=== PATIENT | male | born 1950 | race Caucasian/White ===

== ENCOUNTER → 2017-05-18 | Outpatient (CLI) | payer MEDICARE ==
--- NOTE | 2017-05-18 14:52 | US ---
EXAMINATION TYPE: US mass soft tissue chest/back DATE OF EXAM: 05/18/2017 COMPARISON: NONE CLINICAL HISTORY: D17.21 Benign lipomatous neoplasm of skin. Palpable/painful area right mid back x c ouple months Scanned at area of concern: no mass, fluid collection or other abnormality seen by ultrasound at this time IMPRESSION: No distinct abnormality at the site of clinical concern. Correlate clinically.
== END | disposition home or self-care (01) ==
LOC: RADUSWWP 14:10
PROVIDERS: ATTEND Family Medicine
DX: D17.21 Benign lipomatous neoplasm of skin and subcutaneous tissue of right arm (principal)

== ENCOUNTER → 2018-03-25 | Outpatient (CLI) | payer OTHER ==
--- NOTE | 2018-03-27 09:47 | MR ---
EXAMINATION TYPE: MR brain wo/w con DATE OF EXAM: 03/25/2018 COMPARISON: NONE HISTORY: Dizziness per order. Additional symptoms of bilateral extremity numbness per patient. TECHNIQUE: Multiplanar, multisequence images of the brain and brainstem is performed without and with IV contras t, utilizing 11.5 mL intravenous Gadavist . FINDINGS: Diffusion weighted images demonstrate no evidence of a recent infarct or other diffusion ab normality. There is no worrisome extra-axial fluid collection. The ventricular system and cisternal spaces are normal in size and appearance. The brain volume is age appropriate. There are focal and confluent areas of T2 hyperintensity seen throughout the superficial, deep, and the periventricular w cyn matter. Lesions are nonspecific in appearance and distribution but most likely on basis of produ ct of chronic small vessel ischemic change in patient of this age. Midline structures demonstrate normal morphology. The craniocervical junction appears within normal limits. Post contrast images demonstrate no abnormal enhancement. The dural venous sinuses appear pa tent. There is 9 mm mucous retention cyst or polyp in the left maxillary sinus axial image 2. Remaind er paranasal sinuses are clear. The globes are intact bilaterally. Patchy increased fluid signal bila teral mastoid air cells is present. IMPRESSION: 1. Moderate to severe nonspecific white matter changes most likely on basis of product of chronic sma ll vessel ischemic change in patient this age. No suspicious enhancement noted. 2. Possible bilateral mild mastoiditis, correlate clinically with point tenderness.
== END | disposition home or self-care (01) ==
LOC: RADMRIMAIN 18:20
DX: R90.82 White matter disease, unspecified (principal); I67.82 Cerebral ischemia
CPT/HCPCS: 70553; A9585

== ENCOUNTER → 2018-06-22 | Outpatient (CLI) | payer MEDICARE ==
[2018-06-22 10:25] LABS: Blood Urea Nitrogen 10 mg/dL (9-20)
--- NOTE | 2018-06-22 11:13 | CT ---
EXAMINATION TYPE: CT lumbar spine w con DATE OF EXAM: 06/22/2018 COMPARISON: None HISTORY: 15-year-old male Low back pain, Radiculopathy TECHNIQUE: Contiguous axial scanning of the lumbar spine performed with IV Contrast, patient injected with 100 ml mL of Isovue 300. Coronal/sagittal reconstructions performed. CT DLP: 1001 mGycm Automated exposure control for dose reduction was used. FINDINGS: Subcentimeter hypodensity posterior right liver lobe too small for accurate CT characterization, like ly cyst. Hypodense lesions in the kidneys measuring up to 2.0 cm, likely cysts retroaortic left renal vein and fusiform ectasia infrarenal abdominal aorta 2.9 cm. 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 Bridging syndesmophytes. Partial bridging along the sup raspinous ligament and some fusion across the T12-L2 vertebral posterior elements. There is been prior surgical fusion from L3 through S1 levels with lateral osseous fusion, prior lami nectomies, and a retained transpedicular screw on the right and L3. The other orthopedic hardware has been removed. Vertebral body heights are preserved. On the left, there is moderate bony spondylotic neural foraminal narrowing at L4-L5 and mild at L5-S1 . On the right, there is mild bony neuroforaminal narrowing at L4-L5 and severe at L5-S1. IMPRESSION: 1. PRIOR L3-S1 POSTERIOR FUSION WITH REMOVAL OF ORTHOPEDIC HARDWARE. THERE IS A RETAINED RIGHT-SIDED L3 TRANSPEDICULAR SCREW. THERE IS SATISFACTORY LATERAL OSSEOUS FUSION. WIDE LAMINECTOMY ALONG THESE L EVELS. 2. BRIDGING ENDPLATE SYNDESMOPHYTES AND ADDITIONAL ANKYLOSIS ALONG THE POSTERIOR ELEMENTS FROM T12 TH ROUGH L2. CORRELATE FOR AN INFLAMMATORY SPONDYLOARTHROPATHY SUCH IN THE SETTING OF ANKYLOSING SPON DYLITIS OR IBD. THERE IS BONY FUSION ACROSS THE ANTERIOR SI JOINTS WELL. 3. NO VERTEBRAL COMPRESSION COLLAPSE. 4. HYPEROSTOTIC CHANGES RESULT IN VARIABLE NEUROFORAMINAL NARROWING AT L4-L5 AND L5-S1 OUTLINED AB OVE, SEVERE ON THE RIGHT AT L5-S1. 5. 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 POSSIBLE CHRONIC SHORT SEGMENT DISSECTION HERE ( AXIAL IMAGE 72) SUCH IN THE SETTING OF PRIOR CATHETERIZATION. CLINICALLY CORRELATE.
== END | disposition home or self-care (01) ==
LOC: RADCTMAIN 09:43
PROVIDERS: ATTEND Family Medicine
DX: M48.061 Spinal stenosis, lumbar region without neurogenic claudication (principal); M54.16 Radiculopathy, lumbar region; I72.3 Aneurysm of iliac artery; M54.5 Low back pain; Z98.890 Other specified postprocedural states
CPT/HCPCS: 82565; 84520; 72132; 36415; Q9967

== ENCOUNTER → 2018-07-07 | Outpatient (CLI) | payer OTHER ==
--- NOTE | 2018-07-12 14:09 | ENG ---
ELECTRONYSTAGMOGRAM REPORT DATE OF SERVICE: 07/07/2018 VNG INDICATIONS: A 67-year-old male with dizziness, onset in December 2017, gradual in staying the same. Dizziness comes and goes in spells 2-3 times a week lasting 30-60 minutes at a time. The only position that can trigger the dizziness is going from a lying to a seated position. The patient reports bilateral hearing loss and no tinnitus, pressure, pain, or fullness in the ears. VNG FINDINGS: Saccades shows impaired peak velocities, accuracies, and latencies. Gaze with fixation shows no nystagmus in any of the directions of gaze including centrally with vision denied. Tracking shows severe break-ups. Optokinetic nystagmus shows no significant asymmetries. Static position testing shows no nystagmus in the standing, head right or head left positions with eyes open or vision denied. Gas Technician note that patient could not lay flat and could not perform [place]-Hall[place] maneuvers due to severe back pain. Caloric testing not completed as the patient did not tolerate the air flow. IMPRESSION: This is a limited VNG and the patient had difficulty tolerating parts of the test including calorics. However, in sections that were completed, the abnormalities of impaired saccades and tracking suggests central nervous system dysfunction. No nystagmus was encountered during the testing. Clinical correlation necessary. MMODL / IJN: [id number] /
== END | disposition home or self-care (01) ==
LOC: NEUROMAIN 06:27
PROVIDERS: ATTEND Otolaryngology
DX: R42 Dizziness and giddiness (principal)
CPT/HCPCS: 92540

== ENCOUNTER → 2019-08-11 | Outpatient (CLI) | payer MEDICARE ==
[2019-08-11 06:52] LABS: African American GFR (CKD) >90 (>60 ml/min/1.73 sqM); Blood Urea Nitrogen 15 mg/dL (9-20); Non-African American GFR(CKD) 89 (>60 ml/min/1.73 sqM)
--- NOTE | 2019-08-11 09:27 | CT ---
Lasix spine CT HISTORY: Pain Helical acquisition obtained through the thoracic spine following 100 cc Isovue-300 IV. Automated exposure control for dose reduction, DLP 1603.1 mGycm No comparisons Thoracic vertebral bodies show preserved height and alignment. There are anterior flowing osteophytes present with relative preservation of the disc spaces. No significant spinal stenosis or foraminal e ncroachment. Thoracic vertebral bodies show preserved height, alignment, and bone mineralization. The re is a mild spinal curvature. No evident disc herniation. Low-attenuation of the liver could be due to underlying hepatic steatosis. Coronary artery calcificat ions noted incidentally. Old right clavicular fracture is suspected, there is cortical thickening par tially visualized. No abnormal enhancement. IMPRESSION: Findings suggest diffuse idiopathic skeletal hyperostosis.2 coronary artery disease, find ings in the liver as described
== END | disposition home or self-care (01) ==
LOC: RADCTMAIN 06:11
PROVIDERS: ATTEND Family Medicine
DX: M54.16 Radiculopathy, lumbar region (principal)
CPT/HCPCS: 82565; 84520; 72129; 36415; Q9967

== ENCOUNTER → 2019-09-01 | Outpatient (CLI) | payer MEDICARE ==
--- NOTE | 2019-09-01 12:23 | NM ---
EXAMINATION TYPE: NM bone 3 phase DATE OF EXAM: 09/01/2019 COMPARISON: NONE HISTORY: Low back and mid back pain. Prior back surgeries. Possible bone infection Triple phase bone scintigraphy was performed following the injection of 23.6 mCi Tc 99m MDP. Immedia te images and 3.5 hours post injection images acquired. FINDINGS: No abnormal radiotracer is seen on flow imaging nor blood pool imaging. Delayed imaging dem onstrates minimal asymmetric uptake on the right at L3 and T9. Findings are not definitive for osteom yelitis. IMPRESSION: Mild focal uptake at L3 and T9 on delayed images only. This is not specific as it is not seen on all 3 phases. MRI with contrast could evaluate for bone marrow replacing process and osteomye litis/discitis.
== END | disposition home or self-care (01) ==
LOC: RADNMMAIN 07:13
PROVIDERS: ATTEND Family Medicine
DX: M54.6 Pain in thoracic spine (principal); M53.2X6 Spinal instabilities, lumbar region; M54.16 Radiculopathy, lumbar region
CPT/HCPCS: 78315; A9503

== ENCOUNTER → 2020-01-04 | Outpatient (CLI) | payer MEDICARE ==
[2020-01-04 13:34] VITALS: BP 197/99; PULSE 73; RESP 18; TEMP 98
--- NOTE | 2020-01-04 14:11 | P.PAINCN ---
History of Present Illness - Reason for Consult Consult date: 01/04/20 - History of Present Illness This is a 69-year-old patient referred by Dr. Lundberg with a chief complaint of chronic pain in the thoracic spine worse on the right side. The patient has been having this pain since July after he had a significant episode of pneumonia which involves a lot of coughing. The pain is generally midline but worse on the right side radiating out to the chest area described as sharp and stabbing and aching currently an 8 out of 10. He is currently taking morphine 15 mg a few times a day which she says only really takes the edge off and doesn't help very much. He does not take any other medications. Nothing really makes the pain better and any type of activity and bending forward makes the pain worse. Patient denies adverse drug effects from medications. Patient also denies new-onset weakness, bowel/bladder incontinence, or any other signs or symptoms of cauda equina syndrome. There are no signs of acute intoxication, and no indications of medication diversion or overuse. He also has a significant history of low back pain with fusion from L3 to S1 but today he does not feel that it encompasses much of his pain complaints In addition to above, 13-point review of systems is also negative for chest pain, shortness of breath, changes in vision, changes in hearing, new onset weakness, abdominal pain, diarrhea, extreme fatigue, malaise, fever, skin changes, homicidal or suicidal ideation, or bowel or bladder incontinence. Physical exam: Vital Signs: Reviewed in EMR GENERAL: Well appearing, in no acute distress PSYCH: Mood and affect is appropriate. Awake, alert, and oriented SKIN: Skin color, texture, turgor normal, no rashes or lesions HEENT: Normocephalic, atraumatic. EOM intact CV: No pedal edema RESP: Respirations are unlabored, no audible wheezing GI: Abdomen non-distended MUSCULOSKELETAL: Bilateral upper and lower extremity strength is normal and symmetric. No atrophy or tone abnormalities are noted. Lumbar spine: Straight leg raising in the sitting position is negative for radicular pain. Mild to palpation over thoracic paraspinal muscles. Negative for pain with facet loading and back extension/rotation. Decreased ROM due to habitus Buttocks: No pain to palpation over the PSIS, Yesenia test isnegative Extremities: Peripheral joint ROM is full and pain free without obvious instability or laxity in all four extremities. No edema or skin discolorations noted. Gait: Gait is normal NEUR: Bilateral upper and lower extremity coordination and muscle stretch reflexes are physiologic and symmetric. Negative clonus. No loss of sensation is noted. Cranial nerves are grossly intact. Imaging: Thoracic spine CT 07/2019 - Thoracic vertebral bodies show preserved height and alignment. No significant spinal stenosis or foraminal encroachment. Thoracic vertebral bodies show preserved height alignment and bone mineralization.. No evidence of disc herniation. - Findings suggest diffuse idiopathic skeletal hyperostosis Lumbar MRI 05/2018 - Prior surgical fusion from L3 to S1 levels with lateral osseous fusion prior laminectomies and retained transpedicular screw on the right L3. - On the left there is moderate bony spondylolytic neural foraminal narrowing at L4-L5 and mild at L5-S1 - The right there is mild bony from neuroforaminal narrowing at L4-L5 and severe L5-S1 Assessment: 1. Thoracic back pain in the setting of diffuse idiopathic skeletal hyperostosis 2. Chronic low back pain in the setting of prior fusion from L3 to S1 Plan: 1. Explanation: Diagnoses, prognoses, and multiple treatment options including but not limited to physical therapy, interventional therapies, medication management and surgery were discussed with the patient and all questions were answered to the patient's satisfaction. 2. Investigations: None 3. Counseling: The patient was counseled for 3 minutes on EXERCISE. Specifically, the patient was instructed regarding the importance of weight control, and exercise in the context of both chronic pain and overall health. 4. Procedures: At this time given the fact the patient has no findings of arthritis or nerve impingement due to disc herniation in the CT of his thoracic spine done in July of this year I doubt any form of facet intervention or epidurals would be helpful. His imaging did show diffuse idiopathic skeletal hyperostosis which is generally managed with physical therapy and anti- inflammatory medications 5. Consultations: I will give her prescription for physical therapy to primarily focus on the thoracic spine with stretching strengthening and mobiliz ation exercises 6. Medications: I will also prescribe meloxicam 50 mg once a day and recommended Tylenol 9626-5814 mg a day 7. Disposition: I will have him follow-up in 8 weeks after this conservative therapy. If conservative therapy does not work as a possibility of considering thoracic facet joint injections however I explained to the patient given that he is no findings on the imaging I doubt that he would be helpful. Diffuse idiopathic skeletal hyperostosis is a noninflammatory process of steroid injections of any kind likely be unhelpful. Past Medical History Past Medical History: Hypertension, Pneumonia Additional Past Medical History / Comment(s): migraines, History of Any Multi-Drug Resistant Organisms: None Reported Past Surgical History: Back Surgery, Orthopedic Surgery Additional Past Surgical History / Comment(s): rt knee arthroscopy, rt knee open surgery on kneecap, mult back surgeries, spinal cord stimulator/later removed. rt shoulder surgery, jose rafael cataracts Past Anesthesia/Blood Transfusion Reactions: No Reported Reaction Smoking Status: Former smoker - Past Family History Mother Family Medical History: No Reported History Medications and Allergies Home Medications Medication Instructions Recorded Confirmed Type Latanoprost/Pf [Latanoprost 0.005% 1 drop LEFT EYE BID 01/02/20 01/04/20 History Eye Drop] Lidocaine 5% Patch [Lidoderm] 1 patch TOPICAL DAILY PRN 01/02/20 01/04/20 History Morphine Sulfate 15 mg PO QID 01/02/20 01/04/20 History Meloxicam 15 mg PO DAILY #30 tablet 01/04/20 Rx Allergies Allergy/AdvReac Type Severity Reaction Status Date / Time No Known Allergies Allergy Verified 01/02/20 14:06 PQRS Measure Charge Sheet Measure #226: Tobacco Use: Screen & Cessation Intervention: Pt not a tobacco user Measure #111: Pneumonia Vaccination: Pneumococcal vaccine administered or previously received Measure #47: Advance Care Plan: Advance care planning discussed & documented, pt chose/unable to give Measure #412: Opioid Treatment Agreement: No documentation of signed opioid treatment agreement Measure #408: Opioid Therapy Follow-up Evaluation: Patient had NO f/u eval minimum every 3 months during opioid therapy Measure #317: Preventitive Care & Scrn High Bld Press & F/U: Normal blood pressure, f/u not required Measure #128: Body Mass Index (BMI) Screening & Follow-up: BMI documented ABOVE normal parameters - f/u documented Measure #131: Pain Assessment & Follow-up: Pain positive & plan documented, Follow-up scheduled Measure #431: Unhealthy Alcohol Use Preventative Care & Scrn: Patient not identified as an unhealthy alcohol user PQRS Narrative: Pain Intensity [Back] 9 Hx Alcohol Use (MH) No Home Medications: Ambulatory Orders Latanoprost/Pf [Latanoprost 0.005% Eye Drop] 1 drop LEFT EYE BID 01/02/20 Lidocaine 5% Patch [Lidoderm] 1 patch TOPICAL DAILY PRN 01/02/20 Morphine Sulfate 15 mg PO QID 01/02/20 Meloxicam 15 mg PO DAILY #30 tablet 01/04/20
== END | disposition home or self-care (01) ==
LOC: PNWHC3 13:23
PROVIDERS: ATTEND Anesthesiology
DX: M48.14 Ankylosing hyperostosis [Forestier], thoracic region (principal); G89.29 Other chronic pain; M54.5 Low back pain; Z98.1 Arthrodesis status; Z79.899 Other long term (current) drug therapy; Z79.891 Long term (current) use of opiate analgesic
CPT/HCPCS: 99201

== ENCOUNTER → 2020-03-25 | Outpatient (CLI) | payer MEDICARE ==
[2020-03-25 12:38] VITALS: BP 161/91; PULSE 73; RESP 14; TEMP 98
--- NOTE | 2020-03-25 13:08 | P.PAINPG ---
Subjective Progress Note Date: 03/25/20 Matt presents today for follow-up. He was recently seen in our clinic and was prescribed Mobic 15 mg daily and physical therapy. He continues to have pain across the thoracic spine mostly on the right side. He describes a sharp shooting pain across his back without any numbness tingling or burning. He reports that the Mobic subsequently is able to do more around the house and continue working on things he lost a during the hospital. He ran out of medication and noticed a significant difference. He has not been in physical therapy really does not want to. He does not use any opioid pain medications. He is interested refills of the medications. Objective - Vital Signs Vital signs: Vital Signs Temp 98.0 F 03/25/20 12:29 Pulse 73 03/25/20 12:29 Resp 14 03/25/20 12:29 BP 161/91 03/25/20 12:29 Pulse Ox 97 03/25/20 12:29 - Exam General: Awake and alert oriented 3 no distress Respiratory exam: No audible wheezing no accessory muscle usage Cardiovascular exam: regular rate, palpable bilateral pulses, no lower extremity edema Abdominal exam: No distention nontender to palpation Cervical spine: Normal alignment, Spurling's negative, facet loading negative, Production Machine Shop Supervisor strength is 5/5, monroy negative Thoracic spine reveals tenderness palpation of the right side of the thoracic spine. There is erythema or fluctuance or no masses palpated. There are no step-offs noted. Patient is pain with rotation of the thoracic spine. Neuro exam: Normal sensation in bilateral upper extremities, deep tendon reflexes are 2+ bilateral upper extremities. Normal sensation in bilateral lower extremities. Deep tendon reflexes are 2+ in lower extremities Psych exam: Cooperative, appropriate mood Assessment and Plan Assessment: Thoracic spondylosis without myelopathy Thoracic radiculopathy Plan: At this point we'll continue with the Mobic 50 mg daily. I discussed with him and his daughter he should stay hydrated when using his medication. Should monitor his kidney function with the primary care physician and give me a call if he has any questions or concerns believe forward. We'll give him 5 refills in the medications PQRS Measure Charge Sheet Measure #130: Documentation of Current Meds in Medical Chart: Patient's medica tions documented in chart Measure #226: Tobacco Use: Screen & Cessation Intervention: Pt not a tobacco user Measure #111: Pneumonia Vaccination: Pneumococcal vaccine administered or previously received Measure #47: Advance Care Plan: Advance care planning discussed & documented, plan or surrogate given Measure #412: Opioid Treatment Agreement: No documentation of signed opioid treatment agreement Measure #408: Opioid Therapy Follow-up Evaluation: Patient had f/u eval minimum every 3 months during opioid therapy Measure #317: Preventitive Care & Scrn High Bld Press & F/U: Normal blood pressure, f/u not required Measure #128: Body Mass Index (BMI) Screening & Follow-up: BMI documented ABOVE normal parameters - f/u documented Measure #131: Pain Assessment & Follow-up: Pain positive & plan documented Measure #431: Unhealthy Alcohol Use Preventative Care & Scrn: Patient not identified as an unhealthy alcohol user PQRS Narrative: Blood Pressure 161/91 Pain Intensity [Back] 9 Scale Used Numeric (1 - 10) Hx Alcohol Use (MH) Yes: RARE Home Medications: Ambulatory Orders Latanoprost/Pf [Latanoprost 0.005% Eye Drop] 1 drop LEFT EYE BID 01/02/20 Lidocaine 5% Patch [Lidoderm] 1 patch TOPICAL DAILY PRN 01/02/20 Morphine Sulfate 15 mg PO QID 01/02/20 Aspirin EC [Ecotrin] 325 mg PO DAILY PRN 03/22/20 Controlled Substance Measures - Controlled Substance Measures Is patient prescribed a controlled substance at discharge?: No
== END | disposition home or self-care (01) ==
LOC: PNWHC3 12:13
PROVIDERS: ATTEND Hospitalist
DX: M47.24 Other spondylosis with radiculopathy, thoracic region (principal); Z79.899 Other long term (current) drug therapy; Z79.891 Long term (current) use of opiate analgesic
CPT/HCPCS: 99211

== ENCOUNTER → 2020-09-23 | Outpatient (CLI) | payer MEDICARE ==
[2020-09-23 12:06] VITALS: BP 154/81; PULSE 73; RESP 16; TEMP 98.1
--- NOTE | 2020-09-23 12:22 | P.PN ---
Subjective Progress Note Date: 09/23/20 Matt is a 70-year-old gentleman who presents today for olow-up seondary to his chronic low back pain. he reports is been doing pretty wel since we last seen him. He has a history of multiple back series. Our last visit we prescribe him Mobic for analgesia. He reports that the Mobic is working well. he reports that he does havenumbne and tinglig down thht legif he si fo oo long. Review of Systems: Denies any New chest pain, short of breath, Nausea/vomitting, abdominal pain, bowel or bladder incontinence, or any overt new neurologic symptoms in his upper or lower extremities. Objective - Vital Signs Vital signs: Vital Signs Temp 98.1 F 09/23/20 12:03 Pulse 73 09/23/20 12:03 Resp 16 09/23/20 12:03 BP 154/81 09/23/20 12:03 Pulse Ox 98 09/23/20 12:03 - Exam General: Awake and alert oriented 3 no distress Respiratory exam: No audible wheezing no accessory muscle usage Cardiovascular exam: regular rate, palpable bilateral pulses, no lower extremity edema Abdominal exam: No distention nontender to palpation Cervical spine: Normal alignment, Spurling's negative, facet loading negative, Business Consultant strength is 5/5, monroy negative Lumbar spine: surgical scars are well-healed, loss of lordosis, atrophy of the paraspinal muscles, increased thoracic kyphosis, forward flexed position. Right lower extremity strength 4-5 compared to 5 out of 5 in the left Neuro exam: Normal sensation in bilateral upper extremities, deep tendon reflexes are 2+ bilateral upper extremities. Normal sensation in bilateral lower extremities. Deep tendon reflexes are 1+ in lower extremities Psych exam: Cooperative, appropriate mood Assessment and Plan Assessment: #1 lumbar radiculopathy #2 lumbar postlaminectomy syndrome Plan: he will get his Mobic from his primary care doctor, if the right leg continues to go numb and/or is bother him a lot we'll schedule him for a right-sided L4 5 and L5-S1 transforaminal injection. I have spent 22 minutes on patient care today. The time was used to review the medical records including relevant urine studies and Prescription history (MAPs), review of the available imaging, evaluation and examination of the patient, coordination of care with the medical staff and if applicable referring physicians, as well as creation of the medical record. Maps were checked and appropriate, opioid start talking form is on file and updated, urine drug screens of been appropriate and have been reviewed.
== END ==
LOC: PNWHC3 11:52
PROVIDERS: ATTEND Hospitalist
DX: M54.16 Radiculopathy, lumbar region (principal); M96.1 Postlaminectomy syndrome, not elsewhere classified
CPT/HCPCS: 99211

== ENCOUNTER 2021-05-07 06:26 | Day surgery (SDC) | payer MEDICARE, OTHER ==
[2021-05-06 08:27] VITALS: BMI 31.5
[~2021-05-07 06:26] MED LIST: DEXAMETHASONE SOD PHOSPHATE 4 MG/ML 1 ML VIAL IV ONE; LACTATED RINGERS 1,000 ML IV SCH; LIDOCAINE 1% (10MG/ML) FOR IV START INTRADERMA PRN; ONDANSETRON 4 MG/2 ML VIAL IVP ONE; TETRACAINE 0.5% OPHTH (PF) DROPS 4 ML BTL OP PRN
[2021-05-07 07:02] VITALS: TEMP 97.6
[2021-05-07] MEDS: PILOCARPINE 2% OPHTH DROPS 15 ML BTL OP PRN ×3 (07:03→07:14)
[2021-05-07] MEDS ORDERED: .fentaNYL (PF) 50 MCG/ML 2 ML AMP ONE (07:28)
[2021-05-07] MEDS ORDERED: MIDAZOLAM 2 MG/2 ML VIAL ONE (07:28)
[2021-05-07] MEDS ORDERED: mitoMYcin for Eyes 0.06 MG, EMPTY SYRINGE 1 SYR OP ONE (07:30)
[2021-05-07] MEDS ORDERED: ATROPINE OPHTH SOLN 1% 2 ML BTL LEFT EYE ONE (07:49)
[2021-05-07] MEDS ORDERED: FLUORESCEIN STRIPS 1 MG STRIP LEFT EYE ONE (07:51)
[2021-05-07] MEDS ORDERED: BALANCED SALT IRRIG SOLN COMB2 15 ML IRRIG.SOLN INTRAOCULA ONE (07:51)
[2021-05-07] MEDS ORDERED: LIDOCAINE 1% INJ 10MG/ML (20 ML MDV) SQ ONE (07:52)
[2021-05-07] MEDS ORDERED: MOXIFLOXACIN HCL 0.5% DROPS 3 ML BTL LEFT EYE ONE (07:57)
[2021-05-07] MEDS ORDERED: EPINEPHrine (PF) 1 MG/ML AMP SQ ONE (08:04)
--- NOTE | 2021-05-07 08:58 | P.OP ---
Date of Procedure: 05/07/21 Preoperative Diagnosis: POAG severe Postoperative Diagnosis: same Procedure(s) Performed: Trabeculectomy with shunt & MMC OS Implants: exPress shunt P-50 Anesthesia: MAC Surgeon: Chau Lane Pathology: none sent Condition: stable Disposition: same day Indications for Procedure: glaucoma control Operative Findings: no complications.
[2021-05-07 09:17] VITALS: BP 133/70; PULSE 85; RESP 16
--- NOTE | 2021-05-07 20:28 | OP ---
OPERATIVE REPORT DATE OF SURGERY: 05/07/2021. PROCEDURE: Trabeculectomy with shunt and augmented with mitomycin of the left eye. PREOPERATIVE DIAGNOSIS: Primary open-angle glaucoma, severe stage. POSTOPERATIVE DIAGNOSIS: Primary open-angle glaucoma, severe stage. SURGEON: Dr. Chau Lane. ANESTHESIA: Monitored anesthesia care. ESTIMATED BLOOD LOSS: Less than 5 mL. SPECIMEN TAKEN: None. NARRATIVE: After obtaining the appropriate consent, the patient was brought to the operating room. There he was placed under cardiac monitoring, prepped and draped in the usual sterile manner. He was approached from his 12 o'clock position and a 6-0 silk suture was used to create a traction suture through the superior limbus of the cornea. This was secured to the patient's drape so that the eye was looking downward. At the upper left quadrant of the eye, a small conjunctival peritomy was created using Tiffanie scissors. This was followed by blunt dissection and undermining of the Tenon's capsule in this particular area. This was then followed by using 1% lidocaine with epinephrine on a 27- gauge cannula. This solution was infiltrated under Tenon's capsule throughout the superior portion of the patient's eye. The superior conjunctival peritomy was then enlarged with the Tiffanie scissors followed by bluntly dissecting over the superior portion of the eye as deeply and posteriorly as possible. Hemostasis was controlled using Wet-Field cautery. At the 12 o'clock position, a 3 x 3 mm square area was outlined using a Barraquer caliper. This was then followed by outlining the area with the bipolar cautery. A partial-thickness scleral pocket was created using a crescent blade with the base of the flap adjacent to the patient's corneal limbus. The sides of the pocket were then incised using the blade of the Tiffanie scissor. This was then followed by using mitomycin 0.2 mg/mL for 3 minutes between the leaves of the scleral flap, and the whole area was covered with the conjunctiva for a 3-minute period. The sponge and instruments used to place the mitomycin were all removed from the field. This was followed by copious irrigation of the entire surgical field with balanced salt solution. At the apex of the scleral flap, a 27-gauge hypodermic needle which had been inked with gentian christie was then used to create an opening into the anterior chamber while passing the needle parallel to the patient's iris. This was followed by placement of an Ex-Press shunt model P50 into the track created by the 27-gauge needle. Each side of the scleral flap was then loosely sutured with 10-0 nylon. Care was taken to ensure that there was no additional bleeding anywhere in the surgical field, and this was followed by a reapproximation of the conjunctiva to the corneal limbus using 8- 0 Vicryl suture on a tapered needle. Confirmation of watertight integrity was assured using a fluorescein strip. The superior traction suture was removed from the patient's eye. This was followed by 2 drops of 0.5% moxifloxacin as well as 2 drops of 1% atropine. The patient was then lightly patched and shielded in the usual manner. There were no complications from the procedure. He tolerated the procedure well and was returned to Recovery in good condition. MMJACKIEL / IJLorin: [id number] /
== END 2021-05-07 09:43 | disposition home or self-care (01) ==
LOC: OR 06:26
PROVIDERS: ATTEND Ophthalmology
DX: H40.1123 Primary open-angle glaucoma, left eye, severe stage (principal); Z79.899 Other long term (current) drug therapy; Z79.891 Long term (current) use of opiate analgesic
CPT/HCPCS: 66170; C1783; J2250; J0171; J2001; J3010

== ENCOUNTER 2022-11-30 16:24 | Emergency (ER) | payer MEDICARE ==
[2022-11-30] MEDS ORDERED: MORPHINE SULFATE 4 MG/ML SYRINGE IVP STA (16:52)
--- NOTE | 2022-11-30 17:46 | CT ---
EXAMINATION TYPE: CT brain cspine wo con CT DLP: 1625.2 mGycm, Automated exposure control for dose reduction was used. DATE OF EXAM: 11/30/2022 5:23 PM COMPARISON: MRI brain 03/25/2018 CLINICAL INDICATION:Male, 72 years old with history of Trauma; neck and back pain after fall yesterda y TECHNIQUE: Brain: Multiple axial CT images of the brain were obtained without IV contrast. Cspine: Axial CT images from the skull base to the inferior aspect of T2 we obtained without intraven ous contrast. Coronal and sagittal reformatted images were also reviewed. FINDINGS: Brain: Extra-axial spaces: No abnormal extra-axial fluid collections. Ventricular system: Dilatation in proportion to cerebral atrophy. Cerebral parenchyma: Cerebral atrophy. No acute intraparenchymal hemorrhage or mass effect. The rivas -white junction is well differentiated. Scattered hypoattenuating areas are seen within the white mat ter. Cerebellum: Unremarkable. Mass effect: No evidence of midline shift. Intracranial vasculature: unremarkable Soft tissues: Normal. Calvarium/osseous structures: No depressed skull fracture. Paranasal sinuses and mastoid air cells: Mucosal thickening of the paranasal sinuses. Visualized orbits: Bilateral aphakia Cervical spine: Fracture: None. Osseous structures: Multilevel degenerative disc disease changes with endplate spurring and disc oste ophyte complex's. There are large osteophytes along the anterior spinal canal which impresses upon th e esophagus. Vertebral alignment: Within normal limits. Spinal canal/Neural Foramina: Disc osteophyte complexes at C6-C7 with at least mild spinal canal sten osis. Facet joint uncovertebral joint arthropathy scattered throughout the cervical spine with varyin g degrees of neural foraminal stenosis. Neck soft tissues: Prevertebral soft tissues are within normal limits. Other: The airway is patent. The lung apices are clear. IMPRESSION: 1. No acute intracranial process. 2. Nonspecific white matter changes, likely secondary to chronic small vessel ischemic disease. 3. No evidence of cervical spine fracture. 4. Moderate multilevel degenerative disc disease. 5. Large osteophytes impresses upon the esophagus throughout the cervical spine and into the thoraci c spine.
--- NOTE | 2022-11-30 18:13 | CT ---
EXAMINATION TYPE: CT thor lumbar spine wo con CT DLP: 2193.8 mGycm, Automated exposure control for dose reduction was used. DATE OF EXAM: 11/30/2022 5:24 PM CLINICAL INDICATION:Male, 72 years old with history of Midline back pain; neck and back pain after fa ll yesterday COMPARISON: 06/22/2018 08/28/2019 TECHNIQUE: Axial images of the thoracic and lumbar spine were obtained without contrast. Coronal and sagittal reformats were performed. CT Contrast: Contrast used: mL of , none. Oral contrast used: none. FINDINGS: There is moderate to severe osteophyte formation throughout the spine. Overall alignment is within no rmal limits. Bridging osteophytes are seen throughout the spine on the anterior longitudinal ligament compatible with diffuse idiopathic skeletal hyperostosis. There is calcification of the supraspinous ligament throughout the spine. There is absence of the T10 spinous process. Fixation screw within th e L3 vertebra is present. There is osseous fusion of the posterior elements extending from L2 to esse ntially S1 bilaterally. Laminectomy changes at this level. There is surgical bed fluid collection lik leilani seroma measuring 7.0 x 1.4 cm. No evidence for significant spinal canal stenosis. Mild scattered neural foraminal stenosis throughout the spine. Fusiform ectasia of the infrarenal abdominal aorta near the bifurcation up to 2.8 cm. Right renal cys t. IMPRESSION: 1. Overall findings are not significantly changed from priors. 2. Extensive degeneration changes with osseous fusion throughout the spine. Small effusion is intend ed in the lower lumbar spine while there is involving the anterior longitudinal ligament bridging syn desmophytes. No definitive evidence for acute fracture. Evidence of diffuse idiopathic skeletal hyper ostosis. Postop seroma the lower lumbar spine.
[2022-11-30] MEDS ORDERED: fentaNYL (PF) 50 MCG/ML 2 ML AMP IVP PRN ×2 (18:46→18:50)
[2022-11-30] MEDS ORDERED: fentaNYL (PF) 50 MCG/ML 2 ML AMP IVP STA (19:01)
--- NOTE | 2022-11-30 20:04 | ED ---
General Adult HPI - General Chief complaint: Back Pain/Injury Stated complaint: back pain Time Seen by Provider: 11/30/22 16:26 Source: patient, family, EMS Mode of arrival: EMS Limitations: no limitations - History of Present Illness Initial comments: This is a 72-year-old male with a past medical history including significant spinal surgery presents the emergency department after significant back pain and a fall. The patient stated that he was in the bathroom when he went to get up to go use the bathroom when he experienced significant and severe pain in the central area of his back around the lumbar spine. The patient did state that he is a baseline chronic back pain but stated this pain was significantly severe and had shooting pains down his legs. The patient also reported tingling down the right leg. The patient stated because of this pain he fell forward, hitting the right posterior aspect of his head without any loss of consciousness. The patient was unable to walk secondary to the pain in his back but denied any bladder or bowel incontinence. The patient was however resting in bed comfortably. The patient did receive 100 g of fentanyl via EMS on arrival and stated that his back pain was improved with this pain medication. - Related Data Home Medications Medication Instructions Recorded Confirmed Lidocaine 5% Patch [Lidoderm] 1 patch TOPICAL DAILY PRN 01/02/20 05/06/21 Morphine Sulfate 15 mg PO QID 01/02/20 05/06/21 Dorzolamide 2% [Trusopt 2%] 1 drops BOTH EYES TID 09/19/20 05/06/21 Latanoprostene Bunod [Vyzulta] 1 drop BOTH EYES HS 09/19/20 05/06/21 amLODIPine BESYLATE 5 mg PO DAILY 09/19/20 05/06/21 Allergies Allergy/AdvReac Type Severity Reaction Status Date / Time No Known Allergies Allergy Verified 11/30/22 17:00 Review of Systems ROS Statement: Those systems with pertinent positive or pertinent negative responses have been documented in the HPI. ROS Other: All systems not noted in ROS Statement are negative. Past Medical History Past Medical History: Eye Disorder, Hypertension, Pneumonia Additional Past Medical History / Comment(s): migraines,glaucoma. thoracic back pain History of Any Multi-Drug Resistant Organisms: None Reported Past Surgical History: Back Surgery, Orthopedic Surgery Additional Past Surgical History / Comment(s): rt knee arthroscopy, rt knee open surgery on kneecap, mult back surgeries, spinal cord stimulator/later removed. rt shoulder surgery, jose rafael cataracts. Past Anesthesia/Blood Transfusion Reactions: No Reported Reaction Past Psychological History: No Psychological Hx Reported Smoking Status: Former smoker - Past Family History Mother Family Medical History: No Reported History General Exam Limitations: no limitations General appearance: alert, in distress (In moderate distress 2/2 back pain), obese Head exam: Present: atraumatic, normocephalic, normal inspection Eye exam: Present: normal appearance, PERRL Pupils: Present: normal accommodation ENT exam: Present: normal exam, normal oropharynx, mucous membranes moist Neck exam: Present: normal inspection, full ROM Respiratory exam: Present: normal lung sounds bilaterally Cardiovascular Exam: Present: regular rate, normal rhythm, normal heart sounds GI/Abdominal exam: Present: soft, normal bowel sounds Extremities exam: Present: normal inspection, full ROM Back exam: Present: tenderness (TTP over the midline lower lumbar spine without any step offs or deformities noted). Absent: normal inspection, full ROM Neurological exam: Present: alert, oriented X3, CN II-XII intact Psychiatric exam: Present: normal affect, normal mood Skin exam: Present: warm, dry Course Vital Signs 11/30/22 11/30/22 11/30/22 16:26 16:31 18:07 Pulse Rate 86 80 73 Respiratory 18 18 14 Rate Blood Pressure 182/94 170/92 O2 Sat by Pulse 95 94 L 93 L Oximetry Medical Decision Making - Medical Decision Making Was pt. sent in by a medical professional or institution (, PA, OCEAN LIFEGUARD SPECIALIST, urgent care, hospital, or senior care...) When possible be specific @ -No Did you speak to anyone other than the patient for history (EMS, parent, family, police, friend...)? What history was obtained from this source @ -No Did you review nursing and triage notes (agree or disagree)? Why? @ -I reviewed and agree with nursing and triage notes Were old charts reviewed (outside hosp., previous admission, EMS record, old EKG, old radiological studies, urgent care reports/EKG's, senior care records)? Report findings @ -No old charts were reviewed Differential Diagnosis (chest pain, altered mental status, abdominal pain women, abdominal pain men, vaginal bleeding, weakness, fever, dyspnea, syncope, headache, dizziness, GI bleed, back pain, seizure, CVA, palpatations, mental health)? @ -Lumbar spinal fracture, muscular skeletal strain, epidural abscess, epidural hematoma EKG interpreted by me (3pts min.). @ -None X-rays interpreted by me (1pt min.). @ -None done CT interpreted by me (1pt min.). @ -CT head, CT C-spine as well as CT lumbar and thoracic spine were obtained and were interpreted by myself. CT of the thoracic and lumbar spine without contrast was interpreted by myself showing significantly not change from priors. There was extensive generic changes with osseous effusion throughout the spine. There is a surgical bed fluid collection likely a seroma measuring 7.0 x 1.4 cm. This collection is along the lumbar spine. CT head and CT C-spine were obtained and were interpreted by myself showing no acute process. There is no evidence of cervical spine fracture. U/S interpreted by me (1pt. min.). @ -None done What testing was considered but not performed or refused? (CT, X-rays, U/S, labs)? Why? @ -None What meds were considered but not given or refused? Why? @ -None Did you discuss the management of the patient with other professionals (professionals i.e. , PA, OCEAN LIFEGUARD SPECIALIST, lab, RT, psych nurse, geriatric social worker, customer operations specialist, teacher, chief lifestyle officer, case maker)? Give summary @ -Yes, the accepting physician at [facility], trauma surgeon, Dr. Kaiser was contacted and accepted the patient for transfer for further workup including an MRI. Was smoking cessation discussed for >3mins.? @ -No Was critical care preformed (if so, how long)? @ -No Were there social determinants of health that impacted care today? How? (Homelessness, low income, unemployed, alcoholism, drug addiction, transportation, low edu. Level, literacy, decrease access to med. care, residential, rehab)? @ -No Was there de-escalation of care discussed even if they declined (Discuss DNR or withdrawal of care, Hospice)? DNR status @ -No What co-morbidities impacted this encounter? (DM, HTN, Smoking, COPD, CAD, Cancer, CVA, ARF, Chemo, Hep., AIDS, mental health diagnosis, sleep apnea, morbid obesity)? @ -Significant multiple spinal surgeries Was patient admitted / discharged? Hospital course, mention meds given and route, prescriptions, significant lab abnormalities, going to OR and other pertinent info. @ -The patient was seen and evaluated emergency department. Physical exam, the patient was resting in bed in moderate distress secondary to back pain. Vital signs admission were stable. Due to the patient's fall and an significant midline back pain, CT scans were obtained. CT of the lumbar and thoracic spine were significant for a lower lumbar spinal seroma measuring 7.0 x 1.47 cm. The patient was advised on these results and did state that he had not had surgery in the last 10+ years. His phone setting of significant pain, the patient did require an MRI for further workup and evaluation however this is not possible at this facility as was no MRI tonight or tomorrow. The patient did require transfer and was accepted for transfer by Dr. Kaiser at [facility]. The patient was told of this plan and was also agreeable to this. The patient did receive morphine and fentanyl here in the emergency department with continued back pain. The patient was transferred in stable condition. Undiagnosed new problem with uncertain prognosis? @ -No Drug Therapy requiring intensive monitoring for toxicity (Heparin, Nitro, Insulin, Cardizem)? @ -No Were any procedures done? @ -No Diagnosis/symptom? @ -Fall, back pain, rule out epidural abscess versus epidural hematoma versus chronic seroma Acute, or Chronic, or Acute on Chronic? @ -Acute on chronic Uncomplicated (without systemic symptoms) or Complicated (systemic symptoms)? @ -Complicated Side effects of treatment? @ -No Exacerbation, Progression, or Severe Exacerbation? @ -No Poses a threat to life or bodily function? How? (Chest pain, [place], [place], pneumonia, PE, COPD, DKA, ARF, appy, cholecystitis, CVA, Diverticulitis, Homicidal, Suicidal, threat to staff... and all critical care pts) @ -Yes, if back pain is related to epidural hematoma versus abscess, continued growth and progression can lead to permanent damage and possible . Disposition Clinical Impression: Fall, Back pain Disposition: OTHER INSTITUTION NOT DEFINED Condition: Stable Referrals: Gilbert Betancourt Jr, [Primary Care Provider] - 1-2 days Time of Disposition: 19:40 - Out of Hospital Transfer - Req. Specs Out of Hospital Transfer - Requested Specifics: Other Emergency Center ([facility])
[2022-11-30 20:11] VITALS: BP 158/87; PULSE 79; RESP 16
== END 2022-11-30 20:13 | disposition other institution (70) ==
LOC: EC 16:24
DX: M51.36 Other intervertebral disc degeneration, lumbar region (principal); I10 Essential (primary) hypertension; Z87.891 Personal history of nicotine dependence; Z79.899 Other long term (current) drug therapy; W22.03XA Walked into furniture, initial encounter
CPT/HCPCS: 72128; 72125; 72131; 70450; 99285; 96374; 96375; J2270; J3010